=== PATIENT | male | born 1970 | race Caucasian/White ===

== ENCOUNTER 2016-09-26 02:54 | Emergency (ER) | payer BC ==
[~2016-09-26] VITALS: Ht 170.2 cm; Wt 87.7 kg
[~2016-09-26 02:54] MED LIST: ADDERALL20 MG PO; CITALOPRAM PO; FLEXERIL5 MG PO; MOTRIN600 MG PO; TRAZODONE HCL50 MG PO
[2016-09-26 02:59] VITALS: BP 161/106
[2016-09-26 03:37] LABS: HEMATOCRIT 44.4 % (38.0-50.0); MCH 31.8 PG (29.0-34.0); MCHC 34.9 G/DL (30.0-36.0); PLATELET COUNT 425 K/uL (156-360); RBC DIS.WIDTH-CV 13.5 % (11.8-14.6); RBC DIS.WIDTH-SD 43.9 % (39-53); RED BLOOD COUNT 4.88 M/uL (4.00-5.50)
[2016-09-26 03:49] LABS: CHLORIDE 102 mEq/L (99-109); POTASSIUM 4.3 mEq/L (3.7-5.4); SODIUM 137 mEq/L (136-147)
[2016-09-26 03:50] LABS: GLUCOSE 125 mg/dL (70-99)
[2016-09-26 03:52] LABS: ANION GAP 11 MEQ/L (2-14)
[2016-09-26 03:54] LABS: GFR ESTIMATE (CALCULATED) > 59 mL/min/
[2016-09-26 03:55] LABS: UREA NITROGEN (BUN) 9 mg/dL (9-23)
[2016-09-26 04:36] LABS: ADD MIUA? YES; BILIRUBIN NEGATIVE; BLOOD LARGE; COLOR YELLOW ((YELLOW)); GLUCOSE (STRIP) NEGATIVE; KETONES TRACE; LEUKOCYTES NEGATIVE; NITRITE NEGATIVE; PROTEIN (STRIP) TRACE; SPECIFIC GRAVITY 1.009 (1.000-1.030); UROBILINOGEN 0.2 MG/DL (0.2-1.0)
[2016-09-26 05:37] LABS: CASTS NONE SEEN /LPF; EPITHELIAL CELLS RARE; MUCUS NONE SEEN
[2016-09-26 05:38] LABS: BACTERIA NONE SEEN; CRYSTALS NONE SEEN; RED BLOOD CELLS 20-30 /HPF (0-5); UCUL ADDED? NO; WHITE BLOOD CELLS NONE SEEN /HPF (0-5)
== END 2016-09-26 04:47 | disposition left against medical advice (07) ==
LOC: EME 02:54
DX: R10.9 Unspecified abdominal pain (principal); R31.9 Hematuria, unspecified; Z53.21 Procedure and treatment not carried out due to patient leaving prior to being seen by health care provider
CPT/HCPCS: 74176; 80048; 81003; 85027